=== PATIENT | male | born 1995 | race African-American/Black ===

== ENCOUNTER 2017-08-31 20:27 | Emergency (ER) | payer BC, OTHER ==
[~2017-08-31] VITALS: Ht 170.2 cm; Wt 65.8 kg
--- NOTE | 2017-08-31 21:44 | Emergency Room Report ---
History of Present Illness General Chief Complaint: Lower Extremity Injury Source: Patient Present Illness HPI Patient reports a heavy lead pipe falling onto the left foot 2 days ago Patient has continued pain and discomfort to the large toe And presents for further evaluation Denies any other ankle pain denies any calf pain Pain to the foot itself is 5 out of 10 worse with ambulation Denies any other lapse of consciousness Denies any fevers or chills Allergies: Coded Allergies: No Known Allergies (Unverified , 08/31/17) Patient History Past Medical History: see triage record Pertinent Family History: none Reviewed Nursing Documentation: PMH: Agreed; PSxH: Agreed Nursing Documentation-PM Past Medical History: No History, Except For Review of Systems All Other Systems: negative except mentioned in HPI Physical Exam Vital Signs Date Time Temp Pulse Resp B/P (MAP) Pulse Ox O2 Delivery O2 Flow Rate FiO2 08/31/17 20:46 98.0 86 16 113/74 96 Room Air 98.1 Sp02 EP Interpretation: reviewed, normal General Appearance: well appearing, no apparent distress Head: normocephalic, atraumatic Eyes: bilateral eye PERRL, bilateral eye EOMI ENT: normal pharynx Neck: supple, thyroid normal Respiratory: lungs clear Cardiovascular #1: regular rate, rhythm, no edema Gastrointestinal: non tender, soft Musculoskeletal: swelling - Swelling and mild erythema large toe on the left side, there is also a subungual hematoma, that appears old now there is also already some separation of the nail bed, Neurologic: alert, oriented x3, responsive Skin: other - As above Lymphatic: no adenopathy Medical Decision Making Diagnostic Impression: Primary Impression: Subungual contusion of fingernail Additional Impression: Contusion ER Course Given the history and presentation x-ray imaging was obtained no obvious acute fracture is visualized on one view on the lateral oblique there was a question possible fracture but does not appear to be acute this will have further over the read by radiology Otherwise the patient's nailbed already is patient likely will lose the nail At this time given that the injury occurred 2 days ago And the blood already appears coagulated further intervention was not required patient was given referral to podiatry Post op shoe and further outpatient care Other X-Ray Diagnostic Results Other X-Ray Diagnostic Results : X-Ray ordered: Left foot # of Views/Limited Vs Complete: 4 View Indication: Pain EP Interpretation: Yes Interpretation: no dislocation, no soft tissue swelling, no fractures - Oblique view shows question of possible fracture Impression: No acute disease Electronically Signed by: Toribio Castano DO Last Vital Signs Date Time Temp Pulse Resp B/P (MAP) Pulse Ox O2 Delivery O2 Flow Rate FiO2 08/31/17 20:46 98.0 86 16 113/74 96 Room Air 98.1 Status: improved Disposition: HOME, SELF-CARE Condition: Improved Scripts No Active Prescriptions or Reported Meds Additional Instructions: Patient is provided with the discharge instructions notified to follow up with primary doctor in the next 2-3 days otherwise return to the er with any worsening symptoms. Please note that this report is being documented using [employer] technology. This can lead to erroneous entry secondary to incorrect interpretation by the dictating instrument. Toribio Castano DO Aug 31, 2017 21:44
[2017-08-31] MEDS ORDERED: IBUPROFEN600 MG ORAL (21:46)
[2017-08-31] MEDS ORDERED: ACETAMINOPHEN-1 EAC1 ORAL (21:46)
[2017-08-31 22:32] VITALS: BP 113/74
--- NOTE | 2017-09-01 11:41 | Diagnostic Imaging Report ---
Indication: Foot pain Comparison: None Findings: 3 views of the left foot were obtained. No acute fractures, malalignment, erosions or periostitis are identified. Soft tissues are unremarkable. Impression: No acute findings
== END 2017-08-31 22:32 | disposition home or self-care (01) ==
LOC: EMR 21:03
DX: S90.112A Contusion of left great toe without damage to nail, initial encounter (principal); W20.8XXA Other cause of strike by thrown, projected or falling object, initial encounter; Y92.9 Unspecified place or not applicable
CPT/HCPCS: 99283